=== PATIENT | female | born 1950 | race Two or more races ===

== ENCOUNTER 2019-01-17 06:10 | Day surgery (SDC) | payer OTHER ==
[~2019-01-17 06:10] MED LIST: LEVOTHYROXINE25 MCG PO; SIMVASTATIN10 MG PO; SINGULAIR10 MG PO
[2019-01-17] MEDS ORDERED: ZITHROMAX500 MG PO (09:06)
== END 2019-01-17 13:20 | disposition home or self-care (01) ==
LOC: CIR.AMB 06:10
DX: N87.0 Mild cervical dysplasia (principal)